=== PATIENT | male | born 1985 | race Caucasian/White ===

== ENCOUNTER 2016-10-23 12:15 | Emergency (ER) | payer OTHER ==
[~2016-10-23] VITALS: Ht 175.3 cm; Wt 136.4 kg
[2016-10-23 12:19] VITALS: BP 175/100; PULSE 112; RESP 18; O2SAT 99
--- NOTE | 2016-10-23 12:25 | ED.REPORT ---
HPI-Chest Pain Under 40 Date of Service Oct 23, 2016 ED Provider: Dr. Rickie Rivas Patient is a 30 year old male with a history of GERD and HTN who reports to the ED complaining of chest pain that has been intermittent for 2 weeks and has become constant over the past 2 days. Pt describes pain as a "sharp, piercing pain radiating to the left scapula, and has never experienced pain like this in the past. Pt c/o associated diaphoresis. Pt denies abdominal pain, numbness, fever, nausea, SOB and vomiting. Nursing Notes Stated Complaint: INCREASE HR/CHEST PAIN Chief Complaint: Chest Pain Nursing Notes Reviewed: Yes Allergies: Coded Allergies: Penicillins (Verified Allergy, Severe, has been tested svere hives, ) cortisone (Verified Allergy, Unknown, Hallucinations, 06/27/16) General Time Seen by MD: 12:25 Chief Complaint Chest pain Hx Obtained From: Patient Arrived By: Walk-in Sudden in Onset?: Yes Onset Occurred: 2 days ago Symptom Duration: Since onset Location: : Chest left Radiation: : Does not radiate Severity: Current: Mild Past Medical History Past Medical History Notes: PCP: [facility] De Paz at [facility] Past Medical History Traumatic L hip dislocation 2004 Reports: GERD, Hypertension Past Surgical History None reported Smoking History Unknown if Ever Smoker Social History On Suboxone Alcohol Use: "Social" Ambulatory Status Cane Review of Systems Constitutional: Denies: Fever Respiratory: Denies: Shortness of breath Cardiovascular: Reports: Chest pain GI: Denies: Abdominal pain, Nausea, Vomiting Skin: Reports Diaphoresis, Denies Rash Neurologic: Denies: Numbness Complete sys rev & neg: except as marked. Physical Exam Initial Vital Signs Vital Signs (First) Date Time Temp Pulse Resp B/P Pulse Ox O2 Delivery O2 Flow Rate FiO2 10/23/16 12:19 36.2 112 18 175/100 99 Room Air Initial VS: Reviewed, Vital signs abnormal Head / Eyes: Atraumatic, Normocephalic, PERRL ENT: Mucous membranes moist, Conjunctiva normal, No scleral icterus Neck: Supple, Non-tender, Full range of motion Abdomen / GI: Soft, Non-tender, No guarding, No rebound, No distention Skin: Warm, Dry, No cyanosis Neurologic: Alert, Oriented, Nonfocal Psychiatric: Mood/affect normal, Behavior normal, Normal thought content General/Constitutional: Awake, Alert, No acute distress Respiratory / Chest: Atraumatic, Breath sounds NL, Breath sounds = bilat Heart Rate / Rhythm: Positive: Tachycardia mutiple tattoos Interpretation & Diagnostics Lab Results Interpretation Result Diagram: 10/23/16 1245 10/23/16 1245 Test 10/23/16 12:45 10/23/16 12:57 White Blood Count 8.2th/mm3 (3.8-10.1) Red Blood Count 4.58mil/mm3 (4.40-5.80) Hemoglobin 14.5g/dL (13.8-17.2) Hematocrit 41.5% (41.0-50.0) Mean Corpuscular Volume 90.6fL (81-100) Mean Corpuscular Hemoglobin 31.7pg (27.0-35.0) Mean Corpuscular Hemoglobin Concent 34.9% (32.0-37.0) Red Cell Distribution Width 13.2% (12.3-15.4) Platelet Count 201bil/L (150-400) Neutrophils (%) (Auto) 65.5% (40-74) Lymphocytes (%) (Auto) 25.5% (14-46) Monocytes (%) (Auto) 7.2% (4-12) Eosinophils (%) (Auto) 1.5% (0-5) Basophils (%) (Auto) 0.2% (0-3) D-Dimer < 0.5mg/L (<0.50) Sodium Level 136mEq/L (134-144) Potassium Level 4.5mEq/L (3.5-5.2) Chloride Level 97mEq/L (97-108) Carbon Dioxide Level 26mmol/L (18-29) Blood Urea Nitrogen 16mg/dL (6-20) Creatinine 0.90mg/dL (0.76-1.27) Estimat Glomerular Filtration Rate 106mL/min (>59) Glucose Level 156mg/dL (60-99) Calcium Level 9.3mg/dL (8.5-10.1) Magnesium Level 2.1mg/dL (1.6-2.6) Total Bilirubin 0.4mg/dL (0.0-1.2) Aspartate Amino Transf (AST/SGOT) 68U/L (0-50) Alanine Aminotransferase (ALT/SGPT) 117U/L (0-44) Alkaline Phosphatase 67U/L (25-150) Troponin T < 0.010ug/L (0.0-0.011) Total Protein 8.2g/dL (6.4-8.4) Albumin 4.4g/dL (3.4-5.0) Hold Urine Received (Received) ECG Interpretation ECG Interpretation: benign early repolarization Time: 12:33 Interpreted by: ED physician Rhythm / Conduction: Tachycardia (115) X-Ray Chest Interpretation Chest Xray Interpretation: IMPRESSION: No acute cardiopulmonary findings. Dictated by: Rae Weinstein M.D. on 10/23/2016 at 13:45 Approved by: Rae Weinstein M.D. on 10/23/2016 at 13:45 View: Portable Interpretation / Wet Read by: Interpret - Radiologist CT Chest Interpretation IMPRESSION: 1. No abnormality involving the aorta. 2. Mildly prominent mesenteric lymph nodes, possibly indicating mesenteric adenitis; clinical correlation recommended. 3. Visualized portions of the appendix are within normal limits. 4. Hepatic steatosis. Dictated by: Rosario Hinton M.D. on 10/23/2016 at 14:31 Approved by: Rosario Hinton M.D. on 10/23/2016 at 14:31 Study type: Chest CT no contrast Interpretation / Wet Read by: Interpret - Radiologist Re-Eval/Medical Decision Med Decision/Clinical Course No obvious life threatening cause, given the hypertension and tachycardia and sharp pain radiating the back given that it was unlikely a CT of the aorta was performed and unremarkable. Patient will be discharged with strict return and follow-up precautions. Re-Evaluation/Progress : Time of Eval: 13:50 Re-Evaluation/Progress Note: Pt rechecked. Informed pt of diagnosis and plan for treatment. Pt understands and agrees with plan. F/U and RTER warnings given. All questions addressed. Counseled Regarding: Diagnosis, Lab results, Need for follow-up, When/why to return to ED Discharge & Departure Primary Impression: Chest pain Chest pain type: unspecified Qualified Code: R07.9 - Chest pain, unspecified Disposition: Home Discharge Condition All VS Reviewed: Yes Condition: Stable Additional Instructions: Thank you for entrusting us with your care today. You were diagnosed with chest pain and palpitations of unknown etiology. Your electrocardiogram, CT scan, and laboratory results are reassuring. Please schedule a follow up appointment with your primary care provider to evaluate your elevated liver function tests, as well as an echocardiogram to evaluate your cardiac murmur and chest pain. We encourage you to seek medical attention should your symptoms worsen. It has been a pleasure participating in your care. Referrals: OTHER,PHYSICIAN (PCP) (Family) Scribe Attestation Portion of this note were transcribed by Nicol Brink and Tamiko Chang. I, Dr. Rickie Rivas, personally performed the history, physcial exam, and medical decision-making: I reviewed and confirmed the accuracy for the information in the transcribed note. Signed by: mary Brown, 10/23/16 1518 Celso Rivas DO Oct 23, 2016 12:25 TAMIKO CHANG Oct 23, 2016 12:41 Nicol Brink Oct 23, 2016 14:41
[2016-10-23] MEDS ORDERED: 0.9% Sodium Chloride 1,000 ML IV ONE (13:00)
[2016-10-23 13:05] LABS: BASOPHILS % (AUTO) 0.2 % (0-3); EOSINOPHILS % (AUTO) 1.5 % (0-5); MONOCYTES % (AUTO) 7.2 % (4-12); Mean Corpuscular Hemoglobin 31.7 pg (27.0-35.0); Mean Corpuscular Volume 90.6 fL (81-100); NEUTROPHILS % (AUTO) 65.5 % (40-74); Platelet Count 201 bil/L (150-400)
[2016-10-23 13:24] LABS: TROPONIN T < 0.010 ug/L (0.0-0.011)
[2016-10-23 13:32] LABS: Magnesium 2.1 mg/dL (1.6-2.6)
--- NOTE | 2016-10-23 13:47 | DRSVH ---
PROCEDURE: X-RAY CHEST ONE VIEW, PORTABLE ([id number]) INDICATIONS: chest pain TECHNIQUE: One view of the chest was acquired. COMPARISON: None. FINDINGS: Surgical changes and devices: None. Lungs and pleura: No pleural effusions or pneumothorax. Lungs are clear. Mediastinum: Mediastinal contours appear normal. Heart size is normal. Bones and chest wall: No suspicious bony lesions. Overlying soft tissues appear unremarkable. IMPRESSION: No acute cardiopulmonary findings. Dictated by: Rae Weinstein M.D. on 10/23/2016 at 13:45 Approved by: Rae Weinstein M.D. on 10/23/2016 at 13:45
--- NOTE | 2016-10-23 14:34 | DRSVH ---
PROCEDURE: CT ANG CHEST/ABD W/WO CONTRAST ([id number]) INDICATIONS: chest pain, elevated BP and HR TECHNIQUE: Precontrast 5 mm thick sections acquired from the lung apices to the iliac crests. After the adminis tration of intravenous contrast, 3 mm thick sections again acquired from the lung apices to the iliac crests. 3-dimensional maximum intensity projection (MIP) oblique sagittal and coronal reformats wer e then acquired, and/or 3-dimensional volume rendering reformats. For radiation dose reduction, the following was used: automated exposure control. COMPARISON: None. FINDINGS: Image quality: Excellent. AORTA: The thoracoabdominal aorta is normal in caliber, with no evidence of dissection, aneurysm, or stenosis. CHEST: Lungs and pleura: No acute airspace opacities. No pleural effusions or pneumothorax. Central and p eripheral airways are patent and normal in caliber. Mediastinum: Heart size is normal. No pericardial effusion. No mediastinal or hilar adenopathy by size criteria. Central pulmonary arteries are normal in size. Esophagus is normal in caliber. No h iatal hernias. Bones and chest wall: No axillary adenopathy by size criteria. Thyroid gland is within normal limit s. No suspicious bony lesions. No vertebral body compression fractures. ABDOMEN: Vasculature: Celiac trunk and mesenteric arteries are patent. Renal arteries are also patent. Solid organs: Liver is enlarged, measuring 19.7 cm craniocaudal, and demonstrates diffusely decrease d density, indicating fatty infiltration. Gallbladder is within normal limits. Biliary system is non dilated. Pancreas enhances normally. No adrenal nodules. Both kidneys are normal in size and enha ncement, without hydronephrosis. Peritoneum and bowel: No free fluid or air. Bowel loops are normal in caliber and wall thickness. Visualized portions of the appendix are within normal limits. Nodes and vessels: No retroperitoneal or mesenteric adenopathy by size criteria. Multiple mildly pro minent mesenteric lymph nodes are present. Inferior vena cava is normal in morphology. Bones: No suspicious bony lesions. No vertebral body compression fractures. Miscellaneous: No ventral hernias. IMPRESSION: 1. No abnormality involving the aorta. 2. Mildly prominent mesenteric lymph nodes, possibly indicating mesenteric adenitis; clinical correla tion recommended. 3. Visualized portions of the appendix are within normal limits. 4. Hepatic steatosis. Dictated by: Rosario Hinton M.D. on 10/23/2016 at 14:31 Approved by: Rosario Hinton M.D. on 10/23/2016 at 14:31
[2016-10-23 14:55] VITALS: BP 136/70; PULSE 98; RESP 23; O2SAT 98
[2016-10-23 15:14] VITALS: BP 136/71; PULSE 93; RESP 17; O2SAT 96
== END 2016-10-23 15:15 | disposition home or self-care (01) ==
LOC: SED 12:15
DX: R07.9 Chest pain, unspecified (principal); I10 Essential (primary) hypertension; K21.9 Gastro-esophageal reflux disease without esophagitis; Z88.8 Allergy status to other drugs, medicaments and biological substances; Z88.0 Allergy status to penicillin
CPT/HCPCS: 36415; 71010; 71275; 74175; 80053; 83735; 84484; 85025; 85379; 93005; 96361; 96374; 99285; J2060; J7030; Q9967